=== PATIENT | female | born 1995 | race Caucasian/White ===

== ENCOUNTER 2017-01-21 11:11 | Emergency (ER) | payer BC ==
[~2017-01-21] VITALS: Ht 147.3 cm; Wt 89.8 kg
[2017-01-21] MEDS ORDERED: ESCITALOPRAM OX10 MG PO (11:53)
[2017-01-21 12:12] LABS: EOSINOPHIL (%) 1.2 % (0-5); EOSINOPHIL COUNT 0.1 K/uL (0-0.3); HEMATOCRIT 38.6 % (36.0-46.0); IMMATURE GRANULOCYTE (%) 0.3 % (0.0-0.7); INSTRUMENT ABS NEUTROPHIL CT 4.8 K/uL; LYMPHOCYTE COUNT 2.2 K/uL (1.0-2.8); MCH 28.5 PG (29.0-34.0); MCHC 32.9 G/DL (30.0-36.0); MCV 86.7 FL (83-99); MEAN PLAT.VOLUME 10.2 uM^3 (9.5-12.4); MONOCYTE (%) 6.8 % (3-12); MONOCYTE COUNT 0.5 K/uL (0-0.8); NEUTROPHIL (%) 62.8 % (45-76); NEUTROPHIL COUNT 4.8 K/uL (1.8-6.4); PLATELET COUNT 327 K/uL (156-360); RBC DIS.WIDTH-SD 41.1 % (39-53); RED BLOOD COUNT 4.45 M/uL (3.80-5.20); WHITE BLOOD COUNT 7.7 K/uL (4.1-10.2)
[2017-01-21 12:21] LABS: CHLORIDE 107 mEq/L (99-109); POTASSIUM 3.8 mEq/L (3.7-5.4); SODIUM 140 mEq/L (136-147)
[2017-01-21 12:24] LABS: GLUCOSE 93 mg/dL (70-99)
[2017-01-21 12:25] LABS: ANION GAP 9 MEQ/L (2-14)
[2017-01-21 12:26] LABS: TOTAL BILIRUBIN 0.4 mg/dL (0.0-1.0)
[2017-01-21 12:27] LABS: SERUM ETHYL ALCOHOL < 10 mg/dL
[2017-01-21 12:28] LABS: ALKALINE PHOSPHATASE 80 IU/L (3-129); GFR ESTIMATE (CALCULATED) > 59 mL/min/
[2017-01-21 12:29] LABS: UREA NITROGEN (BUN) 15 mg/dL (9-23)
[2017-01-21 12:31] LABS: SALICYLATE < 5.0 MG/DL (15-30)
[2017-01-21 12:37] LABS: QUANTITATIVE HCG < 4.0 MIU/ML
[2017-01-21 12:42] LABS: ADD MEDTOX COMMENT Y; AMPHETAMINE NEGATIVE (500 ng/mL); BARBITURATES NEGATIVE (200 ng/mL); BENZODIAZEPINES NEGATIVE (150 ng/mL); COCAINE NEGATIVE (150 ng/mL); INTERNAL CONTROLS VALID? YES; METHADONE NEGATIVE (200 ng/mL); METHAMPHETAMINE NEGATIVE (500 ng/mL); OPIATES (MORPHINE) NEGATIVE (100 ng/mL); OXYCODONE NEGATIVE (100 ng/mL); PHENCYCLIDINE NEGATIVE (25 ng/mL); PROPOXYPHENE NEGATIVE (300 ng/mL); THC CANNABINOIDS PRESUMPTIVE POSITIVE (50 ng/mL); TRICYCLIC ANTIDEPRESSANTS NEGATIVE (300 ng/mL)
[2017-01-21 14:41] VITALS: BP 121/84
== END 2017-01-21 14:42 | disposition home or self-care (01) ==
LOC: EME 11:11
PROVIDERS: Emergency Medicine
DX: F32.9 Major depressive disorder, single episode, unspecified (principal); F43.23 Adjustment disorder with mixed anxiety and depressed mood
CPT/HCPCS: 80053; 84702; 84999; 85025; 90839; 99281; 99285; G0480